=== PATIENT | male | born 1950 | race Caucasian/White ===

== ENCOUNTER 2023-07-05 07:14 | Day surgery (SDC) | payer MEDICAID, MEDICARE ==
[~2023-07-05] VITALS: Ht 165.1 cm; Wt 72.6 kg
[2023-07-05] MEDS ORDERED: SIMETHICONE 40 MG/0.6 ML ML ONE (08:37)
[2023-07-05] MEDS ORDERED: MEPERIDINE 100 MG INJ. 100 MG/ML VIAL ONE (08:38)
[2023-07-05] MEDS ORDERED: MIDAZOLAM HCL 5 MG/5 ML VIAL ONE (08:38)
[2023-07-05 09:23] VITALS: O2SAT 100
[2023-07-05 15:21] VITALS: BP_SYST 119; PULSE 110; RESP 10
== END 2023-07-05 10:56 | disposition home or self-care (01) ==
LOC: SDS 07:14 → SMU 07:17 → SDS 10:56
PROVIDERS: ATTEND Internal Medicine Gastroenterology
DX: D64.9 Anemia, unspecified (principal); D12.2 Benign neoplasm of ascending colon; K29.50 Unspecified chronic gastritis without bleeding; B96.81 Helicobacter pylori [H. pylori] as the cause of diseases classified elsewhere; R19.5 Other fecal abnormalities; G20 Parkinson's disease; I10 Essential (primary) hypertension; Z79.899 Other long term (current) drug therapy
CPT/HCPCS: 45380; 45381; 45385; 43239; 99152; 87081; 36415; 88305; 88312; 88313; 99153; G0378; J2250; J2175